=== PATIENT | male | born 1995 | race Caucasian/White ===

== ENCOUNTER 2017-01-08 21:52 | Emergency (ER) | payer SELFPAY ==
[2017-01-08 23:09] LABS: CHLORIDE,CL 100 mmol/L (98-107); SODIUM,NA 138 mmol/L (136-145)
[2017-01-08] MEDS ORDERED: diphenhydrAMINE 25 MG Cap PO ONE (23:30)
[2017-01-08] MEDS ORDERED: predniSONE 20 MG Tab PO ONE (23:31)
[2017-01-09 05:35] VITALS: BP 151/94
--- NOTE | 2017-01-23 07:52 | ER ---
Date of Service: 01/08/2017 SUBJECTIVE: Travis presents to the emergency room with complaints of shortness of breath and chest tightness. States he feels as though he cannot catch his breath. He states that he has been experiencing these symptoms for approximately 4 hours. He states that he has not recently been ill. He states that the chest discomfort is worse when he takes a deep breath. He states that he has had a mild cough. The patient states that he was spraying with an insecticide yesterday and was not wearing any protective mask. PAST MEDICAL HISTORY: None. MEDICATIONS: None. ALLERGIES: NKDA. REVIEW OF SYSTEMS: General: No fever or chills. HEENT: No sore throat, rhinorrhea, or congestion. Respiratory: Please see history of present illness. Cardiac: Please see history of present illness. Denies any jaw, arm, neck or back pain. GI: No nausea, vomiting, or diarrhea. No melena, hematochezia, or hematemesis. : Denies any dysuria. Musculoskeletal: No myalgias or arthralgias. Neurologic: No fainting, blackouts, lightheadedness. PHYSICAL EXAMINATION: General: A 21-year-old male patient. No acute distress. Vital Signs: Blood pressure is 138/101, pulse rate is 114, respiratory rate 16, O2 saturations 100%. The patient does appear to be somewhat anxious. Skin: Warm, pink, and dry. HEENT: Head is normocephalic, atraumatic. Eyes, PERRLA. Extraocular movements are intact. Ears, TMs are clear. Mouth, oral mucosa is moist. Lungs: Clear to auscultation. Heart: Regular rate and rhythm. Abdomen: Soft, nontender. There is no hepatosplenomegaly or masses noted. Neurologic: He is alert and oriented. Answers all questions appropriately. His speech is fluent. His gait is within normal limits. LABORATORY DATA: CBC was obtained and was noted to be within normal limits. Comprehensive metabolic panel was obtained, was all noted to be within normal limits with the exception of elevated fasting blood glucose of 122. Troponin was less than 0.017. CK-MB was 0.9. PA and lateral chest x-ray was obtained. There was no evidence of any acute infiltrate. ASSESSMENT: Pneumonitis from insecticide exposure. PLAN: I did contact poison control and they stated that the insecticide in question was derived from and stated that typically the type of reaction is more of a IgE mediated type 3 reaction, associated with significant histamine release. The patient was subsequently started on Benadryl 50 mg every 4 to 6 hours. The patient was also started on prednisone 40 mg daily for 5 days. I would like him to follow up in the clinic in the next 7 to 10 days to ensure resolution of his symptoms. All questions were answered. DILLONK: 01/22/2017 21:49:19 MODL: 01/23/2017 01:39:42 /[id number]
== END 2017-01-08 23:43 | disposition home or self-care (01) ==
LOC: VM.ED 21:52
DX: T60.91XA Toxic effect of unspecified pesticide, accidental (unintentional), initial encounter (principal); J68.0 Bronchitis and pneumonitis due to chemicals, gases, fumes and vapors
CPT/HCPCS: 36415; 71020; 80053; 82550; 82553; 84484; 85025; 93005; 99285; A9270; 99283-GF

== ENCOUNTER 2017-05-08 09:41 | Emergency (ER) | payer MEDICAID ==
[2017-05-08] MEDS ORDERED: Sodium Chloride 0.9% 1,000 ML IV ONE (10:22)
[2017-05-08] MEDS ORDERED: LORazepam 2 MG/ML SDV IVPUSH ONE (10:22)
[2017-05-08 11:31] LABS: CHLORIDE,CL 101 mmol/L (98-107); SODIUM,NA 141 mmol/L (136-145)
[2017-05-08 12:21] VITALS: BP 142/89
--- NOTE | 2017-05-09 08:10 | ER ---
Date of Service: 05/08/2017 SUBJECTIVE: Travis presents to the emergency room with complaints of methamphetamine use. He states that he has been experiencing agitation, chest pain, and palpitations since using it. He states that he has used several times in the last 2 days. Previously, he had been off the medication since he was in rehab, but he has since relapsed and is now currently using the drug on a regular basis. The patient states that he has been injecting it but also was then smoking some. He states that he has also noticed some discoloration to his hands and genitalia shortly after taking the medication consistent with vasoconstriction. PAST MEDICAL HISTORY: None. MEDICATIONS: None. ALLERGIES: NKDA. REVIEW OF SYSTEMS: General: Denies any fever or chills. HEENT: No sore throat, rhinorrhea, or congestion. Respiratory: No shortness of breath. Positive for anterior left-sided chest wall pain, it is worse with deep breathing. Cardiac: Denies any substernal chest pain. No jaw, arm, neck, or back pain. Gastrointestinal: No nausea, vomiting, or diarrhea. No melena, hematochezia, or hematemesis. Genitourinary: Denies any dysuria. Musculoskeletal: No myalgias or arthralgias. Neurologic: No fainting, blackouts, or lightheadedness. PHYSICAL EXAMINATION: General: This is a 22-year-old male patient, in no acute distress. Vital Signs: Blood pressure is 137/90, heart rate is 97, temperature is 36.1, respiratory rate 16, and O2 saturations 97%. Skin: Warm, pink, and dry. HEENT: Head is normocephalic, atraumatic. Eyes, PERRLA. Extraocular movements intact. Mouth, oral mucosa is moist. Lungs: Clear to auscultation. Heart: Regular rate and rhythm. Abdomen: Soft, nontender. There is no hepatosplenomegaly noted. There is no masses noted. Extremities: Without edema. Neurologic: He is alert, oriented, answers all questions appropriately. His speech is fluent. His gait is within normal limits. Psychiatric: The patient is quite aggressive to the staff, upset about having to be taking more than 1 attempt to start an IV, amongst other things and for having to wait for his lab results. LABORATORY DATA: WBCs 11.6, hemoglobin is 14.7, platelets are 277. Coags; PT is 11.8, INR is 1.0. Chemistry; sodium is 141, potassium is 3.5, chloride is 101, bicarb is 28, BUN is 8, creatinine 0.9. Creatinine clearance is 130, GFR is greater than 60. Glucose is 114. Lactic acid is 0.8, calcium is 9.4, corrected calcium is 8.76. Total bilirubin is 1.0, AST is 20, ALT is 27, alkaline phosphatase is 99. CK is 130, CK-MB is 1.3. Troponin is less than 0.017. C-reactive protein is 0.6. BNP is 61. Total protein is 8.4. Urinalysis did have a trace of ketones, specific gravity of 1.010, PH was 7.0, negative for occult blood, nitrites, bilirubin, and leukocyte esterase. EMERGENCY ROOM COURSE: Occasionally, the patient's heart rate would increase into the 140 range particularly if he was agitated. He was given 2 mg of Ativan IV. He was observed for over an hour in the emergency room and his heart rate decreased into the high 90s and stated this level. The patient stated that he wanted to leave, was requesting that his IV be removed. All questions were answered. Subsequently, the patient was discharged from the emergency room. ASSESSMENT: Methamphetamine toxicity. PLAN: Again, the patient was discharged. He was advised to stay and finish his all of his IV fluids and be observed to make sure that his heart rate does not increase but he refused. He all questions were answered. MWK: 05/08/2017 12:12:26 MODL: 05/08/2017 20:01:35 /[id number]
== END 2017-05-08 12:05 | disposition home or self-care (01) ==
LOC: VM.ED 09:41
DX: T43.621A Poisoning by amphetamines, accidental (unintentional), initial encounter (principal)
CPT/HCPCS: 36415; 80053; 81001; 82550; 82553; 83605; 83880; 84484; 85025; 85610; 86140; 87040; 93005; 96361; 96374; 99284; J2060; J7030

== ENCOUNTER 2019-04-27 02:48 | Observation (INO) | payer MEDICAID ==
[2019-04-27] MEDS ORDERED: Proparacaine 0.5% Ophth Soln 15 ML Bottle EYELF ONE (03:44)
[2019-04-27] MEDS ORDERED: Fluorescein 1 MG Ophth Strip EYELF ONE (03:45)
[2019-04-27 03:54] LABS: CHLORIDE,CL 102 mmol/L (98-107); SODIUM,NA 141 mmol/L (136-145)
[2019-04-27 03:55] LABS: ANION GAP 17.7 mmol/L (10-20)
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
[2019-04-27] MEDS ORDERED: Gentamicin 0.3% Ophth Soln 5 ML Bottle EYELF ONE (04:11)
[2019-04-27] MEDS ORDERED: Lidocaine 1% 30 ML SDV INJECT ONE (04:14)
[2019-04-27] MEDS ORDERED: Ibuprofen 200 MG Tab PO ONE (04:23)
[2019-04-27] MEDS ORDERED: Sodium Chloride 0.9% 10 ML Syringe FLUSH PRN (05:11)
[2019-04-27] MEDS ORDERED: Ondansetron 4 MG/2 ML SDV IVPUSH ONE ×2 (05:12→05:22)
[2019-04-27] MEDS ORDERED: Acetaminophen/HYDROcodone 325-5 MG Tab PO PRN (06:59)
--- NOTE | 2019-04-27 07:18 | CT ---
[id number] CT/CT Head WO IV EXAM: CT Head WO IV CLINICAL DATA: TRAUMA COMPARISON: NO PREVIOUS SIMILAR EXAM IS AVAILABLE FOR COMPARISON. FINDINGS: Left periorbital swelling is seen. There is a fracture of the medial wall of the left orbit. There is a smaller fracture of the floor of the left orbit. There is no mass or mass effect. There is no hemorrhage or hydrocephalus. There are no extra-axial fluid collections. There are no sites of abnormal attenuation. IMPRESSION: NO PLAIN CT EVIDENCE OF ACUTE INTRACRANIAL PROCESS. LEFT-SIDED ORBITAL FRACTURES. Kosta Diane MD 04/27/19 0717 Thank you for allowing us to participate in the care of your patient.
--- NOTE | 2019-04-27 07:23 | CT ---
[id number] CT/CT Sinus Survey WO IV Exam: CT Sinus Survey WO IV Clinical Data: TRAUMA COMPARISON: CORRELATION IS MADE WITH THE EARLIER PLAIN CT BRAIN FINDINGS: There is motion artifact. A depressed fracture of the medial wall of the left orbit is seen with herniation of orbital fat into the ethmoid air cells. A nondisplaced fracture of the floor of the left orbit is seen involving the infraorbital canal. The paranasal sinuses are aerated. The middle ear and mastoid air cells are also aerated. There also appear to be small fractures of the maxillary spine and nasal bone. IMPRESSION: LEFT ORBITAL AND NASAL FRACTURES DESCRIBED. Kosta Diane MD 04/27/19 0722 Thank you for allowing us to participate in the care of your patient.
--- NOTE | 2019-04-27 07:25 | CT ---
[id number] CT/CT Cervical Spine WO IV Exam: CT Cervical Spine WO IV Clinical Data: TRAUMA COMPARISON: CORRELATION IS MADE WITH THE OTHER IMAGING STUDIES TODAY FINDINGS: No fracture or subluxation is seen. There is a normal appearance of the C1-C2 articulation. The prevertebral soft tissues are unremarkable. IMPRESSION: NO FRACTURE OR SUBLUXATION. Kosta Diane MD 04/27/19 0724 Thank you for allowing us to participate in the care of your patient.
[2019-04-27] MEDS ORDERED: Gentamicin 0.3% Ophth Soln 5 ML Bottle EYELF SCH (08:00)
[2019-04-27] MEDS: Gentamicin 0.3% Ophth Soln 5 ML Bottle EYELF SCH ×2 (10:30→13:52)
[2019-04-27 11:04] VITALS: BP 120/69; PULSE 96
[2019-04-27 11:11] LABS: BARBITURATE SCREEN,URINE NEGATIVE (NEGATIVE); BENZODIAZEPINES SCREEN,URINE NEGATIVE (NEGATIVE); EDDP,URINE SCREEN NEGATIVE (NEGATIVE); METHAMPHETAMINE SCREEN, URINE NEGATIVE (NEGATIVE); TCA SCREEN,URINE NEGATIVE (NEGATIVE); THC SCREEN,URINE 50 NG/ML NEGATIVE (NEGATIVE)
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
== END 2019-04-27 13:50 | disposition home or self-care (01) ==
LOC: VM.ED 02:48 → VM.MS 04:00
PROVIDERS: ADMIT Physician Assistant; ATTEND Physician Assistant
DX: S02.82XA Fracture of other specified skull and facial bones, left side, initial encounter for closed fracture (principal); S02.2XXA Fracture of nasal bones, initial encounter for closed fracture; S05.02XA Injury of conjunctiva and corneal abrasion without foreign body, left eye, initial encounter; S06.0X1A Concussion with loss of consciousness of 30 minutes or less, initial encounter; F10.129 Alcohol abuse with intoxication, unspecified; F32.9 Major depressive disorder, single episode, unspecified; Y09 Assault by unspecified means; Z79.899 Other long term (current) drug therapy; Z86.59 Personal history of other mental and behavioral disorders
CPT/HCPCS: 12013; 36415; 70450; 70486; 72125; 80053; 80305; 85025; 85610; 96374; 96375; 99285; A9270; G0378; G0480; J2001; J2405